=== PATIENT | female | born 1940 | race Caucasian/White ===

== ENCOUNTER 2022-04-29 17:05 | Emergency (ER) | payer OTHER ==
[2022-04-29] MEDS ORDERED: DIPHTH,PERTUSS(ACELL),TET 0.5 ML DISP.SYRIN IM ONE ×2 (17:29→17:38)
[2022-04-29 17:30] VITALS: BP 150/80; PULSE 72; RESP 18; TEMP 97.8; BMI 16.5
[2022-04-29] MEDS ORDERED: ACETAMINOPHEN 325 MG TABLET (FP) PO ONE (19:37)
[2022-04-29] MEDS ORDERED: ACETAMINOPHEN 325 MG TABLET (FP) ONE (19:42)
== END 2022-04-29 19:53 | disposition home or self-care (01) ==
LOC: FER 17:05
PROC: 0HQ1XZZ Repair Face Skin, External Approach (ICD-10-PCS; principal; 2022-04-29)
PROC: 3E0234Z Introduction of Serum, Toxoid and Vaccine into Muscle, Percutaneous Approach (ICD-10-PCS; 2022-04-29)
DX: S01.81XA Laceration without foreign body of other part of head, initial encounter (principal); S16.1XXA Strain of muscle, fascia and tendon at neck level, initial encounter; W19.XXXA Unspecified fall, initial encounter
CPT/HCPCS: 70450-TC; 72125-TC; 73030-TC-RT-FY; 90715; 99284-25